=== PATIENT | male | born 1970 | race Caucasian/White ===

== ENCOUNTER → 2021-07-02 | Emergency (ER) | payer MEDICAID ==
[~2021-07-02] VITALS: Ht 157.5 cm; Wt 72.7 kg
[~2021-07-02] MED LIST: CEPH250T PO; SULF1TAB45 PO
[2021-07-02 14:37] VITALS: BP 176/103
== END | disposition home or self-care (01) ==
LOC: ER 14:06
DX: L02.415 Cutaneous abscess of right lower limb (principal); L03.115 Cellulitis of right lower limb
CPT/HCPCS: 99283